=== PATIENT | female | born 1980 | race African-American/Black ===

== ENCOUNTER 2020-06-13 15:41 | Emergency (ER) | payer MEDICAID ==
[~2020-06-13] VITALS: Ht 180.3 cm; Wt 58.0 kg
[2020-06-13 16:26] LABS: HCG UR SG 1.021 (1.003-1.030); MICROSCOPIC AUTO
[2020-06-13] MEDS ORDERED: AZITHROMYCIN 500 MG TABLET PO ONE (18:30)
[2020-06-13] MEDS ORDERED: CEFTRIAXONE 250 MG IM ONE (18:30)
[2020-06-13] MEDS ORDERED: AZITHROMYCIN 500 MG TABLET ONE (18:38)
[2020-06-13] MEDS ORDERED: CEFTRIAXONE 250 MG ONE (18:38)
--- NOTE | 2020-06-13 19:00 | NUR ---
FOOD PROVIDED. PT AWAITING DC. PT UPDATED.
[2020-06-13 19:35] VITALS: BP 128/72
[2020-06-13 19:40] LABS: WET PREP WBCS FEW (FEW)
[2020-06-13 19:48] LABS: CLUE CELLS PRESENT (NONE SEEN)
[2020-06-13] MEDS ORDERED: metroNIDAZOLE 500 MG TABLET ONE (20:15)
[2020-06-13] MEDS ORDERED: metroNIDAZOLE 500 MG TABLET PO ONE (20:30)
== END 2020-06-13 20:25 | disposition home or self-care (01) ==
LOC: ED 17:38
DX: A59.01 Trichomonal vulvovaginitis (principal); N30.00 Acute cystitis without hematuria; R10.2 Pelvic and perineal pain; N89.8 Other specified noninflammatory disorders of vagina; R30.0 Dysuria; R31.9 Hematuria, unspecified; F17.200 Nicotine dependence, unspecified, uncomplicated
CPT/HCPCS: 81001; 81025; 87086; 87210; 87491; 87591; 87808; 96372; 99283; J0696

== ENCOUNTER 2021-01-30 11:44 | Emergency (ER) | payer MEDICAID ==
[~2021-01-30] VITALS: Ht 180.3 cm; Wt 61.1 kg
[2021-01-30 13:15] LABS: BASOPHILS % (AUTO) 2 % (0-1); EOSINOPHILS % (AUTO) 2 % (1-7); LYMPHOCYTES % (AUTO) 30 % (22-44); MEAN CORPUSCULAR HGB CONC 31.4 g/dL (32.4-35.8); MEAN PLATELET VOLUME 8.1 fL (7.4-10.4); MONOCYTES % (AUTO) 11 % (2-9); NEUTROPHILS % (AUTO) 56 % (42-75); PLATELET COUNT 203 x10^3/uL (130-400); RED BLOOD COUNT 4.11 x10^6/uL (3.82-5.3); RED CELL DISTRIBUTION WIDTH 24.2 % (9.6-15.2)
[2021-01-30 13:24] LABS: ALANINE AMINOTRANSFERASE 26 U/L (12-78); ALBUMIN 3.3 g/dL (3.4-5.0); ANION GAP 4 mmol/L (5-15); CALCIUM 8.8 mg/dL (8.5-10.1); CHLORIDE 111 mmol/L (98-107)
[2021-01-30 13:29] LABS: ALKALINE PHOSPHATASE 52 U/L (45-117); BILIRUBIN,TOTAL 0.3 mg/dL (0.2-1.0); TOTAL PROTEIN 6.9 g/dL (6.4-8.2)
--- NOTE | 2021-01-30 13:48 | NUR ---
pt to [place]
[2021-01-30 13:55] LABS: ANISOCYTOSIS 2+; HYPOCHROMIA 2+; MICROCYTOSIS 1+; OVALOCYTES 1+; POLYCHROMASIA 1+
[2021-01-30 13:56] LABS: <PLATELET ESTIMATE> ADEQUATE; <PLT MORPHOLOGY> NORMAL PLT MORPH
[2021-01-30] MEDS ORDERED: CEFTRIAXONE 1,000 MG IM ONE (15:00)
[2021-01-30 15:04] LABS: MICROSCOPIC NOT IND
[2021-01-30] MEDS ORDERED: CEFTRIAXONE 1,000 MG ONE (15:22)
[2021-01-30 15:26] VITALS: BP 131/73
--- NOTE | 2021-01-30 15:34 | NUR ---
medicated per mar.
== END 2021-01-30 16:14 | disposition home or self-care (01) ==
LOC: ED 15:50
DX: A54.9 Gonococcal infection, unspecified (principal); D50.0 Iron deficiency anemia secondary to blood loss (chronic); N93.8 Other specified abnormal uterine and vaginal bleeding; D25.1 Intramural leiomyoma of uterus
CPT/HCPCS: 36415; 76830; 80053; 81003; 84703; 85025; 87491; 87591; 96372; 99284; J0696

== ENCOUNTER 2021-02-12 11:12 | Emergency (ER) | payer MEDICAID ==
[~2021-02-12] VITALS: Ht 180.3 cm; Wt 59.4 kg
[2021-02-12 11:41] VITALS: BP 130/77
== END 2021-02-12 13:37 | disposition home or self-care (01) ==
LOC: ED 11:42
DX: M25.531 Pain in right wrist (principal)
CPT/HCPCS: 29125; 99283